=== PATIENT | female | born 1950 | race Caucasian/White ===

== ENCOUNTER 2020-08-03 16:40 | Emergency (ER) | payer OTHER ==
[2020-08-03 16:53] VITALS: BP 127/72
[2020-08-03] MEDS ORDERED: KETOROLAC TROMETHAMINE 60 MG/2 ML SDV IM ONE (17:32)
--- NOTE | 2020-08-03 17:34 | ER Document Report ---
ED Neck/Back Problem - General Chief Complaint: Neck Injury Stated Complaint: FALL/NECK PAIN Time Seen by Provider: 08/03/20 17:20 Primary Care Provider: ALAINA CAGLE NP [Primary Care Provider] - Follow up as needed Mode of Arrival: Ambulatory Information source: Patient, Relative Notes: Patient is a 70-year-old female comes emergency room complaining of upper lip posterior neck pain and shoulder pain. states that on Saturday night she was attempting to bring down boxes. From the attic when she lost her balance slipped and fell down the steps. He states that she hit the back of her neck on a pain can and her shoulder on the cement floor. No loss of consciousness were reported patient thought she was okay. However last evening states that patient just could not find a position of comfort was applying ice states that not her she normally has a high tolerance for pain and she could not take the pain last night. He does around and found 1 hydrocodone pill that he had left from some type of a procedure there to her and she did get a little bit of relaxation from that. Patient still complaining of severe neck pain with right shoulder pain and minimal left shoulder pain. Patient denies any visual changes no nausea no vomiting no diarrhea. She does have a history of hypertension and oral dependent diabetes. She does smoke. - HPI Patient complains to provider of: Pain, Injury, Neck Onset: Other - 2 days Where: Home Onset: Gradual Timing: Still present Quality of pain: Achy, Sharp Pain Level: 4 Recent injury: Yes Exacerbated by: Movement of neck Relieved by: Nothing Similar symptoms previously: No Recently seen / treated by doctor: No - Related Data Allergies/Adverse Reactions: varenicline [From Chantix] Allergy (Verified 08/03/20 18:16) Past Medical History - General Information source: Patient - Social History Smoking Status: Current Every Day Smoker Cigarette use (# per day): Yes Chew tobacco use (# tins/day): No Smoking Education Provided: No Frequency of alcohol use: None Drug Abuse: None Lives with: Family Family History: Reviewed & Not Pertinent Review of Systems - Review of Systems Constitutional: No symptoms reported EENT: No symptoms reported Cardiovascular: No symptoms reported Respiratory: No symptoms reported Gastrointestinal: No symptoms reported Genitourinary: No symptoms reported Female Genitourinary: No symptoms reported Musculoskeletal: See HPI, Joint pain, Neck pain Skin: No symptoms reported Hematologic/Lymphatic: No symptoms reported Neurological/Psychological: No symptoms reported -: Yes All other systems reviewed and negative Physical Exam - Vital signs Vitals: Temp Pulse Resp BP Pulse Ox 97.9 F 78 20 127/72 H 98 08/03/20 16:52 08/03/20 16:52 08/03/20 16:52 08/03/20 16:52 08/03/20 16:52 Interpretation: Normal - Notes Notes: PHYSICAL EXAMINATION: GENERAL: Patient is a well-nourished well-developed 69-year-old female no apparent distress on examination however she does hear somewhat uncomfortable. HEAD: Atraumatic, normocephalic. Examination patient's head does not show any signs of ecchymosis or abrasions or hematomas. Palpation here did not show any tenderness. EYES: Pupils equal round and reactive to light, extraocular movements intact, conjunctiva are normal. NECK: Examination patient's her concern is inferior posterior portion of the cervical spine. Patient has some mild swelling around C6 715 1 area that is ten glenn to palpate. She also has some mild tenderness ascending from that area into the mid cervical spine. She has decreased range of motion in all planes secondary to discomfort. Also noted is palpation down along the upper trapezius bilaterally and into the shoulder shows marked amount of tenderness as well. LUNGS: Breath sounds clear to auscultation bilaterally and equal. No wheezes rales or rhonchi. HEART: Regular rate and rhythm without murmurs Female : deferred Musculoskeletal: Examination patient's shoulder or elbow area complaint does not show any deformities that I can see. She has performed a motion of the arms and has been trying to get resistance with straight arm raises and resistance movements. Clavicles appear to be intact without any tenderness. Other appears to be no deformities and no dislocations. Again patient has form to motion with those areas. NEUROLOGICAL: . Normal speech, normal gait. Normal sensory, motor exams PSYCH: Normal mood, normal affect. SKIN: Warm, Dry, normal turgor, no rashes or lesions noted. Course - Re-evaluation Re-evalutation: 08/03/20 22:56 Patient's x-rays and CT came back negative. Given that she has spasms going on in the back I did feel that the medication for pain was warranted. She will follow-up with her primary care. - Vital Signs Vital signs: Temp Pulse Resp BP Pulse Ox 97.9 F 78 20 127/72 H 98 08/03/20 16:52 08/03/20 16:52 08/03/20 16:52 08/03/20 16:52 08/03/20 16:52 Discharge - Discharge Clinical Impression: Cervical strain, acute Qualifiers: Encounter type: initial encounter Qualified Code(s): S16.1XXA - Strain of muscle, fascia and tendon at neck level, initial encounter Contusion of neck Qualifiers: Encounter type: initial encounter Qualified Code(s): S10.93XA - Contusion of unspecified part of neck, initial encounter Right shoulder strain Qualifiers: Encounter type: initial encounter Qualified Code(s): S46.911A - Strain of unspecified muscle, fascia and tendon at shoulder and upper arm level, right arm, initial encounter Left shoulder strain Qualifiers: Encounter type: initial encounter Qualified Code(s): S46.912A - Strain of unspecified muscle, fascia and tendon at shoulder and upper arm level, left arm, initial encounter Condition: Stable Disposition: HOME, SELF-CARE Instructions: Contusion ([facility]), Neck Injury (Cervical Strain) ([facility]), Shoulder Injury ([facility]) Additional Instructions: As we discussed there are no fractures seen on the CT and nothing going on in the brain. Ice to all parts that hurt as we discussed or you may use moist heat this time. I have written you a little bit of pain medication to help curb the discomfort for the next 24 to 48 hours. After that you can take Tylenol alternate with Motrin. I also writing for a muscle relaxer for the neck and upper back area that feel like there are spasms there. Should you have any concerns or problems return to ER for reevaluation. Prescriptions: Methocarbamol [Robaxin 500 mg Tablet] 500 mg PO TID #20 tablet Forms: Smoking Cessation Education Referrals: ALAINA CAGLE NP [Primary Care Provider] - Follow up as needed
--- NOTE | 2020-08-03 18:08 | RADIOLOGY REPORT (SQ) ---
EXAM DESCRIPTION: CT HEAD WITHOUT IMAGES COMPLETED DATE/TIME: 08/03/2020 4:54 pm REASON FOR STUDY: Fall/on aspirin COMPARISON: None. TECHNIQUE: Axial images acquired through the brain without intravenous contrast. Images reviewed wi th bone, brain and subdural windows. Additional sagittal and coronal reconstructions were generated. Images stored on PACS. All CT scanners at this facility use dose modulation, iterative reconstruction, and/or weight based d osing when appropriate to reduce radiation dose to as low as reasonably achievable (ALARA). [facility]: Dose Right [facility]: CareDose [facility]: Dose Right [facility]: Teradose 4D [facility]: Smart RingMD RADIATION DOSE: CT Rad equipment meets quality standard of care and radiation dose reduction techniq ues were employed. CTDIvol: 53.2 mGy. DLP: 1097 mGy-cm. mGy. LIMITATIONS: None. FINDINGS: VENTRICLES: Normal size and contour. CEREBRUM: No masses. No hemorrhage. No midline shift. No evidence for acute infarction. Normal gra y/white matter differentiation. No areas of low density in the white matter. CEREBELLUM: No masses. No hemorrhage. No alteration of density. No evidence for acute infarction. EXTRAAXIAL SPACES: No fluid collections. No masses. ORBITS AND GLOBE: No intra- or extraconal masses. Normal contour of globe without masses. CALVARIUM: No fracture. PARANASAL SINUSES: No fluid or mucosal thickening. SOFT TISSUES: No mass or hematoma. OTHER: No other significant finding. IMPRESSION: NO ACUTE INTRACRANIAL IMAGING FINDINGS. EVIDENCE OF ACUTE STROKE: NO. COMMENT: Quality ID # [id number]: Final reports with documentation of one or more dose reduction techniques (e.g., Automated exposure control, adjustment of the mA and/or kV according to patient size, use of iterative reconstruction technique) TECHNICAL DOCUMENTATION: JOB ID: [id number] 2010 [employer]- All Rights Reserved Reading location - IP/workstation name: [email or web address]
--- NOTE | 2020-08-03 18:10 | RADIOLOGY REPORT (SQ) ---
EXAM DESCRIPTION: CT CERVICAL SPINE WITHOUT IMAGES COMPLETED DATE/TIME: 08/03/2020 4:54 pm REASON FOR STUDY: Neck pain//fall COMPARISON: None. TECHNIQUE: Axial images acquired through the cervical spine without intravenous contrast. Images re viewed with lung, soft tissue and bone windows. Reconstructed coronal and sagittal MPR images review ed. Images stored on PACS. All CT scanners at this facility use dose modulation, iterative reconstruction, and/or weight based d osing when appropriate to reduce radiation dose to as low as reasonably achievable (ALARA). [facility]: Dose Right [facility]: CareDose [facility]: Dose Right [facility]: Teradose 4D [facility]: Smart Ranker RADIATION DOSE: CT Rad equipment meets quality standard of care and radiation dose reduction techniq ues were employed. CTDIvol: 17.6 mGy. DLP: 375 mGy-cm. mGy. LIMITATIONS: None. FINDINGS: ALIGNMENT: Anatomic. MINERALIZATION: Normal. VERTEBRAL BODIES: No acute fracture or loss of vertebral body height. Small marginal osteophytes at the endplates. Limbus vertebrae is noted at C5-C6, a normal variant. DISCS: Mild degenerative disc disease with loss of intervertebral disc height. No significant disc b ulges. FACETS, LATERAL MASSES, POSTERIOR ELEMENTS: No fracture or or dislocation. Multilevel facet arthropa thy. There is [id number] neural foraminal stenosis at the left L3-4 and right L4-5 levels. HARDWARE: None in the spine. VISUALIZED RIBS: No fractures. LUNG APICES AND SOFT TISSUES: No significant or acute findings. OTHER: No other significant finding. IMPRESSION: No acute fracture or dislocation of the cervical spine. Multilevel spondylosis, degener ative disc disease and facet arthropathy. TECHNICAL DOCUMENTATION: JOB ID: [id number] Quality ID # [id number]: Final reports with documentation of one or more dose reduction techniques (e.g., Au tomated exposure control, adjustment of the mA and/or kV according to patient size, use of iterative reconstruction technique) 2010 [employer] All Rights Reserved Reading location - IP/workstation name: [email or web address]
--- NOTE | 2020-08-03 18:33 | RADIOLOGY REPORT (SQ) ---
EXAM DESCRIPTION: SHOULDER BILAT 2 OR MORE VIEWS IMAGES COMPLETED DATE/TIME: 08/03/2020 6:16 pm REASON FOR STUDY: Fall COMPARISON: None. NUMBER OF VIEWS: Three views. TECHNIQUE: Internal rotation, external rotation, and Y view images acquired of the right and left sh oulders. LIMITATIONS: None. FINDINGS: MINERALIZATION: Normal. BONES: No acute fracture. JOINTS: No dislocation. Osteoarthrosis of the acromioclavicular joints. VISUALIZED LUNGS AND RIBS: No pneumothorax or rib fracture. SOFT TISSUES: No radiopaque foreign body. OTHER: No other findings. IMPRESSION: No acute osseous abnormality of the shoulders. TECHNICAL DOCUMENTATION: JOB ID: [id number] 2010 [employer]- All Rights Reserved Reading location - IP/workstation name: [email or web address]
[2020-08-03] MEDS ORDERED: HYDROCODONE/ACETAMINOPHEN 5-325 MG TABLET PO ONE (19:06)
[2020-08-03] MEDS ORDERED: HYDROCODONE/ACETAMINOPHEN 5-325 MG (6 TAB/ER DISP) PO PRN (19:07)
== END 2020-08-03 19:39 | disposition home or self-care (01) ==
LOC: ER 16:40
DX: S16.1XXA Strain of muscle, fascia and tendon at neck level, initial encounter (principal); S10.93XA Contusion of unspecified part of neck, initial encounter; S46.911A Strain of unspecified muscle, fascia and tendon at shoulder and upper arm level, right arm, initial encounter; S46.912A Strain of unspecified muscle, fascia and tendon at shoulder and upper arm level, left arm, initial encounter; R51.9 Headache, unspecified; W10.8XXA Fall (on) (from) other stairs and steps, initial encounter; W22.8XXA Striking against or struck by other objects, initial encounter; Y93.89 Activity, other specified; Y92.008 Other place in unspecified non-institutional (private) residence as the place of occurrence of the external cause; M47.812 Spondylosis without myelopathy or radiculopathy, cervical region; M50.30 Other cervical disc degeneration, unspecified cervical region; I10 Essential (primary) hypertension; E11.9 Type 2 diabetes mellitus without complications; F17.210 Nicotine dependence, cigarettes, uncomplicated; Z88.8 Allergy status to other drugs, medicaments and biological substances
CPT/HCPCS: 99285; 96372; 73030; 70450; 72125; J1885